=== PATIENT | female | born 1995 | race Caucasian/White ===

== ENCOUNTER → 2017-06-11 | Outpatient (CLI) | payer BC ==
--- NOTE | 2017-06-11 17:00 | REP ---
Obstetric sonography: Limited study. History: 32 week-5-day gestation decreased motion. Findings: Scanning through the gravid uterus demonstrates a viable single intrauterine gestation in a cephalic lie. Amniotic fluid is subjectively normal. Placenta is anterior without evidence of previa, grade 1. SD ratio in the umbilical cord artery by Doppler is normal at 3.05. Biophysical profile score is eight out of a possible eight. MIRTHA is normal and 11.4 cm. Closed cervical length is 4.0 cm viewed transabdominally. heart rate is recorded at 157 beats per minute. Signed by Stanley Kolb MD 06/11/2017 04:51 P
== END ==
LOC: M RAD 15:22
PROVIDERS: ATTEND Nurse Practitioner Women's Health
DX: O36.8131 Decreased fetal movements, third trimester, fetus 1 (principal); Z3A.32 32 weeks gestation of pregnancy